=== PATIENT | female | born 1985 | race Caucasian/White ===

== ENCOUNTER 2016-12-20 10:24 | Emergency (ER) | payer OTHER ==
[~2016-12-20] VITALS: Ht 190.5 cm; Wt 75.0 kg
[~2016-12-20 10:24] MED LIST: ASCO-294 PO; DOCU-41 PO; FERR325T6 PO; HYDR-3090 PO; IBUP800T28 PO
[2016-12-20 10:27] VITALS: BP 127/86; PULSE 82; RESP 16; O2SAT 100
--- NOTE | 2016-12-20 10:32 | ED.REPORT ---
HPI-Eye Problem Date of Service Dec 20, 2016 ED Provider: Johan Car DO The pt is a 31 y/o female presenting to the ED due to a L eye injury. She describes working w/ 5 corroded AA batteries and feeling the acid splash into her L eye. Nursing Notes Stated Complaint: BATTERY ACID IN EYE Chief Complaint: L eye injury Nursing Notes Reviewed: Yes Allergies: Coded Allergies: amoxicillin (Unverified Allergy, Unknown, 01/04/16) Scheduled Ascorbate Calcium (Vitamin C) 500 Mg Tablet 500 MG PO DAILY Docusate Sodium (Colace) 100 Mg Capsule 100 MG PO DAILY Ferrous Sulfate (Ferrous Sulfate) 325 Mg Tablet.dr 325 MG PO DAILY Scheduled PRN Hydrocodone-Acetaminophen 5-300 mg (Hydrocodone-Acetaminophen 5-300 mg) 1 Each Tablet 1 TABLET PO Q4H PRN PRN For Pain Ibuprofen (Ibuprofen) 800 Mg Tablet 800 MG PO Q6H PRN PRN For Pain General Time Seen by MD: 10:31 Chief Complaint Other (L eye injury ) Hx Obtained From: Patient Arrived By: Walk-in Sudden in Onset?: Yes Symptom Duration: Since onset Recent Healthcare: No recent doctor visit, No recent hospitalization Similar Sx Previous: No Past Medical History Past Medical History None reported Past Surgical History None reported Smoking History Never Smoker Social History None reported Ambulatory Status Independent Review of Systems Eyes: Reports: Eye pain left Complete sys rev & neg: except as marked. Physical Exam Initial Vital Signs Vital Signs (First) Date Time Temp Pulse Resp B/P Pulse Ox O2 Delivery O2 Flow Rate FiO2 12/20/16 10:27 36.1 82 16 127/86 100 Room Air Initial VS: Reviewed General / Const: Well-developed, Well-nourished ENT: Mucous membranes moist, Conjunctiva normal, No scleral icterus Neck: Supple, Non-tender, Full range of motion Respiratory: Breath sounds normal, Clear to auscultation, No respiratory distress Cardiovascular: Regular rate & rhythm, Heart sounds normal, Intact distal pulses Extremities: Vascular intact, Neuro intact, No swelling, No tenderness Skin: Warm, Dry, No cyanosis Neurologic: Alert, Oriented, Nonfocal Psychiatric: Mood/affect normal, Behavior normal, Normal thought content Head / Eyes: Atraumatic, Normocephalic, PERRL, EOMI, No periorbital redness, No periorbital swelling, No photophobia, No scleral icterus, Conjunctiva NL, Cornea clear, No corneal abrasion, Manda test negative, Eyelids NL, Visual acuity NL Conjunctiva / Sclera: Negative: Chemosis L, Chemosis R, Discharge L..., Discharge R..., Injected left, Injected right 20/16 vision in eyes bilaterally; No fluorescein uptake bilaterally Normal pH, 7.0 left eye Re-Eval/Medical Decision Med Decision/Clinical Course No evidence of eye injury. Referred to ophthalmology as needed. Return precautions given Source of Hx: Old records Counseled Regarding: Diagnosis, Need for follow-up, When/why to return to ED Discharge & Departure Primary Impression: Chemical exposure of eye Disposition: Home Discharge Condition All VS Reviewed: Yes Condition: Stable Additional Instructions: Your vision is normal and I saw no signs of any injuries to your eye. If you need to follow up with an opthamologist I have attached phone number below. Referrals: Comfort Campbell MD (PCP) Lena Flanagan MD Scribe Attestation Portions of this note were transcribed by Rafa Dobbins. I, Dr. Car personally performed the history, physical exam and medical decision-making; I reviewed and confirmed the accuracy of the information in the transcribed note. copies to: Lena Flanagan MD, Timothy S DO Dec 20, 2016 10:31 Rafa Dobbins Dec 20, 2016 10:50
[2016-12-20] MEDS ORDERED: 0.9% Sodium Chloride Inhalation Solution ONE (10:37)
[2016-12-20] MEDS ORDERED: Fluorescein 0.6 mg Ophthalmic Strip ONE (10:37)
[2016-12-20] MEDS ORDERED: Tetracaine 0.5% 4 mL Ophthalmic Solution ONE (10:38)
== END 2016-12-20 11:05 | disposition home or self-care (01) ==
LOC: SED 10:24
DX: Z77.098 Contact with and (suspected) exposure to other hazardous, chiefly nonmedicinal, chemicals (principal); X58.XXXA Exposure to other specified factors, initial encounter; Y93.89 Activity, other specified; Y92.69 Other specified industrial and construction area as the place of occurrence of the external cause; Y99.0 Civilian activity done for income or pay; Z88.1 Allergy status to other antibiotic agents